=== PATIENT | female | born 1980 | race Two or more races ===

== ENCOUNTER → 2025-05-13 | Outpatient (CLI) | payer MEDICAID, SELFPAY ==
--- NOTE | 2025-05-13 08:00 | XR_ITS ---
Examination: Breast ultrasound, unilateral, right complete Date and time of exam: May 13, 2025 0855 hours INDICATIONS: Right breast sonogram June 19, 2024 BI-RADS 4 suspicious nodule 11:00 position right breast 8 x 9 x 12 mm Technique: Real-time metcalf scale ultrasonographic imaging performed right breast including all 4 quadrants as well as nipple retroareolar and axillary region. Findings: 12:00 cyst 12 x 11 mm 1:00 nodule lobular margins 6 x 4 mm 3:00 nodule lobular margins 14 x 12 mm 8:00 nodule lobular margins 6 x 6 mm 10:00 nodule lobular margins 14 x 11 mm 11:00 nodule lobular margins 10 x 11 mm IMPRESSION: BI-RADS Category 3: Probably benign findings Continued 3-6 month follow-up right breast sonography strongly recommended
== END | disposition home or self-care (01) ==
LOC: CDIM 08:36
PROVIDERS: PCP Family Medicine; Referring Provider Physician Assistant Medical; Visit Provider Physician Assistant Medical
DX: R92.8 Other abnormal and inconclusive findings on diagnostic imaging of breast (principal); N63.11 Unspecified lump in the right breast, upper outer quadrant
CPT/HCPCS: 76641